=== PATIENT | male | born 1975 | race African-American/Black ===

== ENCOUNTER 2016-05-12 16:34 | Emergency (ER) | payer OTHER ==
[2016-05-12] MEDS ORDERED: Bicillin LA 1.2 MILLION UNITS/2 ML SYRINGE ONE (17:01)
== END 2016-05-12 17:20 | disposition home or self-care (01) ==
LOC: MADERS 16:34
DX: J03.90 Acute tonsillitis, unspecified (principal); E78.5 Hyperlipidemia, unspecified; I10 Essential (primary) hypertension; R59.0 Localized enlarged lymph nodes
CPT/HCPCS: 96372; J0561; J1040

== ENCOUNTER 2016-07-17 12:13 | Outpatient (CLI) | payer OTHER | END 2016-07-17 12:14 | LOC: MADLABBHPM 12:13 | PROVIDERS: ATTEND Family Medicine | DX: J03.90 Acute tonsillitis, unspecified (principal) | CPT/HCPCS: 36415; 87070 ==

== ENCOUNTER 2016-08-15 07:14 | Outpatient (CLI) | payer OTHER ==
[2016-08-15 07:56] LABS: Hemoglobin A1c 5.8 % (4.0-6.0)
[2016-08-15 08:04] LABS: ALT (SGPT) 39 U/L (8-55); AST (SGOT) 26 U/L (5-34); Albumin 3.4 g/dL (3.5-5.0); Alkaline Phosphatase 85 U/L (40-150); Anion Gap 12 mmol/L (10-20); BUN (Urea Nitrogen) 16 mg/dL (8.9-20.6); Bilirubin, Total 0.3 mg/dL (0.2-1.2); Calc. Creatinine Clearance 0 mL/min (70-130); Calcium 8.5 mg/dL (7.8-10.44); Carbon Dioxide 28 mmol/L (22-29); Cardiac Risk 5.6 (Less than 4.5); Chloride 105 mmol/L (98-107); Cholesterol 156 mg/dl (< 200 Desired); Estimated GFR-MDRD Greater than 90; Globulin 3.3 g/dL (2.4-3.5); Glucose 105 mg/dL (70-105); HDL Cholesterol 28 mg/dL (>60 Neg Risk); LDL Cholesterol, Calculated 107 mg/dL; Potassium 3.9 mmol/L (3.5-5.1); Protein, Total 6.7 g/dL (6.0-8.3); Sodium 141 mmol/L (136-145); Triglycerides 105 mg/dL (Less than 150)
[2016-08-15 08:17] LABS: Free T4 (Free Thyroxine) 0.76 ng/dL (0.70-1.48); Thyroid Stimulating Hormone 1.09 uIU/mL (0.35-4.94)
== END 2016-08-15 07:15 | disposition home or self-care (01) ==
LOC: MADLABBHPM 07:14
PROVIDERS: ATTEND Family Medicine
DX: E78.5 Hyperlipidemia, unspecified (principal); R73.09 Other abnormal glucose; I10 Essential (primary) hypertension
CPT/HCPCS: 36415; 80053; 80061; 83036; 84439; 84443

== ENCOUNTER 2017-01-18 23:18 | Emergency (ER) | payer OTHER ==
[2017-01-18] MEDS ORDERED: Acetaminophen/Codeine 30-300mg Tablet ONE (23:46)
[2017-01-19] MEDS ORDERED: Cephalexin 500 MG CAP ONE (00:11)
[2017-01-19] MEDS ORDERED: predniSONE 20 MG TAB ONE (00:11)
--- NOTE | 2017-01-19 08:31 | RAD ---
RIGHT ANKLE 3 VIEWS: HISTORY: Pain. COMPARISON: None. FINDINGS: Evidence of old injury to the medial ligamentous complex. Mild degenerative change at the lateral s houlder of the ankle mortise. There is ossification along the syndesmotic membrane. Small dorsal calcaneal enthesophytes. Mild soft tissue edema. IMPRESSION: Evidence of old ligamentous injury. No acute fracture or malalignment. POS: [facility]
== END 2017-01-19 00:35 | disposition home or self-care (01) ==
LOC: MADERS 23:18
DX: M25.571 Pain in right ankle and joints of right foot (principal); E78.5 Hyperlipidemia, unspecified; I10 Essential (primary) hypertension; Z79.899 Other long term (current) drug therapy
CPT/HCPCS: J7506

== ENCOUNTER 2017-09-01 11:10 | Emergency (ER) | payer OTHER ==
[2017-09-01] MEDS ORDERED: cloNIDine 0.1 MG TAB ONE (11:40)
[2017-09-01] MEDS ORDERED: Tobramycin Sulfate 0.3% Ophth Susp 5 ml Bottle ONE (11:44)
== END 2017-09-01 11:58 | disposition home or self-care (01) ==
LOC: MADERS 11:10
DX: H10.9 Unspecified conjunctivitis (principal); I10 Essential (primary) hypertension; E78.5 Hyperlipidemia, unspecified; M10.9 Gout, unspecified; Z79.899 Other long term (current) drug therapy
CPT/HCPCS: 99282

== ENCOUNTER 2017-10-06 07:27 | Outpatient (CLI) | payer OTHER ==
[2017-10-06 07:59] LABS: ALT (SGPT) 31 U/L (8-55); AST (SGOT) 21 U/L (5-34); Albumin 3.5 g/dL (3.5-5.0); Alkaline Phosphatase 88 U/L (40-150); Anion Gap 14 mmol/L (10-20); BUN (Urea Nitrogen) 11 mg/dL (8.9-20.6); Bilirubin, Total 0.3 mg/dL (0.2-1.2); Calc. Creatinine Clearance 0 mL/min (70-130); Calcium 8.8 mg/dL (7.8-10.44); Carbon Dioxide 25 mmol/L (22-29); Cardiac Risk 6.4 (Less than 4.5); Chloride 105 mmol/L (98-107); Cholesterol 140 mg/dl (< 200 Desired); Estimated GFR-MDRD Greater than 90; Globulin 3.4 g/dL (2.4-3.5); Glucose 115 mg/dL (70-105); HDL Cholesterol 22 mg/dL (>60 Neg Risk); LDL Cholesterol, Calculated 106 mg/dL; Potassium 4.3 mmol/L (3.5-5.1); Protein, Total 6.9 g/dL (6.0-8.3); Sodium 140 mmol/L (136-145); Triglycerides 62 mg/dL (Less than 150); Uric Acid 6.9 mg/dL (3.5-7.2)
[2017-10-06 11:47] LABS: Hemoglobin A1c 6.1 % (4.0-6.0)
== END 2017-10-06 07:28 | disposition home or self-care (01) ==
LOC: MADLABBHPM 07:27
PROVIDERS: ATTEND Family Medicine
DX: E78.5 Hyperlipidemia, unspecified (principal); R73.09 Other abnormal glucose
CPT/HCPCS: 36415; 80053; 80061; 83036; 84550

== ENCOUNTER 2018-03-03 07:09 | Outpatient (CLI) | payer OTHER ==
[2018-03-03 07:24] LABS: #Basophils 0.1 thou/uL (0.0-0.2); #Eosinphils 0.3 thou/uL (0.0-0.7); #Lymphocytes 2.6 thou/uL (1.20-3.40); #Monocytes 0.7 thou/uL (0.11-0.59); %Basophils 0.7 % (0.0-1.0); %Eosinophils 4.2 % (0.0-10.0); %Lymphocytes 33.4 % (21.0-51.0); %Monocytes 9.6 % (0.0-10.0); %Neutrophils 52.2 % (42.0-75.0); Hemoglobin 13.5 g/dL (14.0-18.0); Mean Corpuscular HGB CONC 31.2 g/dL (32.0-36.0); Mean Corpuscular Hemoglobin 27.2 pg (27.0-31.0); Mean Corpuscular Volume 87.2 fL (78.0-98.0); Mean Platelet Volume 6.4 fL (7.4-10.4); Platelet Count 372 thou/uL (130-400); RBC Distribution Width 14.1 % (11.5-14.5); Red Blood Cell (RBC) Count 4.97 mill/uL (4.70-6.10); White Blood Cell (WBC) Count 7.7 thou/uL (4.8-10.8)
[2018-03-03 07:30] LABS: ALT (SGPT) 37 U/L (8-55); AST (SGOT) 25 U/L (5-34); Albumin 3.6 g/dL (3.5-5.0); Alkaline Phosphatase 96 U/L (40-150); Anion Gap 12 mmol/L (10-20); BUN (Urea Nitrogen) 14 mg/dL (8.9-20.6); Bilirubin, Total 0.3 mg/dL (0.2-1.2); Calc. Creatinine Clearance 0 mL/min (70-130); Carbon Dioxide 27 mmol/L (22-29); Cardiac Risk 7.2 (Less than 4.5); Chloride 105 mmol/L (98-107); Cholesterol 151 mg/dl (< 200 Desired); Estimated GFR-MDRD Greater than 90; Globulin 3.7 g/dL (2.4-3.5); Glucose 121 mg/dL (70-105); HDL Cholesterol 21 mg/dL (>60 Neg Risk); LDL Cholesterol, Calculated 114 mg/dL; Potassium 4.2 mmol/L (3.5-5.1); Protein, Total 7.3 g/dL (6.0-8.3); Sodium 140 mmol/L (136-145); Triglycerides 78 mg/dL (Less than 150)
[2018-03-03 11:56] LABS: Hemoglobin A1c 6.1 % (4.0-6.0)
== END 2018-03-03 07:10 | disposition home or self-care (01) ==
LOC: MADLABBHPM 07:09
PROVIDERS: ATTEND Family Medicine
DX: E78.5 Hyperlipidemia, unspecified (principal); R73.09 Other abnormal glucose; D64.9 Anemia, unspecified; I10 Essential (primary) hypertension
CPT/HCPCS: 36415; 80053; 80061; 83036; 85025

== ENCOUNTER 2019-11-10 06:44 | Outpatient (CLI) | payer OTHER ==
[2019-11-10 07:42] LABS: Hemoglobin 14.3 g/dL (14.0-18.0); Mean Corpuscular HGB CONC 30.5 g/dL (32.0-36.0); Mean Corpuscular Hemoglobin 26.8 pg (27.0-31.0); Mean Corpuscular Volume 87.7 fL (78.0-98.0); Red Blood Cell (RBC) Count 5.32 mill/uL (4.70-6.10); White Blood Cell (WBC) Count 8.6 thou/uL (4.8-10.8)
[2019-11-10 07:43] LABS: #Basophils 0.1 thou/uL (0.0-0.2); #Eosinphils 0.5 thou/uL (0.0-0.7); #Lymphocytes 2.8 thou/uL (1.20-3.40); #Monocytes 0.7 thou/uL (0.11-0.59); #Neutrophils 4.5 thou/uL (1.40-6.50); %Basophils 1.1 % (0.0-1.0); %Eosinophils 5.6 % (0.0-10.0); %Monocytes 7.6 % (0.0-10.0); %Neutrophils 52.4 % (42.0-75.0); Mean Platelet Volume 6.2 fL (7.4-10.4); Platelet Count 412 thou/uL (130-400); RBC Distribution Width 14.2 % (11.5-14.5)
[2019-11-10 08:00] LABS: Carbon Dioxide 27 mmol/L (22-29); Chloride 105 mmol/L (98-107); Potassium 4.3 mmol/L (3.5-5.1); Sodium 142 mmol/L (136-145)
[2019-11-10 08:01] LABS: Albumin 3.6 g/dL (3.5-5.0); BUN (Urea Nitrogen) 13 mg/dL (8.9-20.6); Bilirubin, Total 0.3 mg/dL (0.2-1.2); Calc. Creatinine Clearance 0 mL/min (70-130); Calcium 8.6 mg/dL (7.8-10.44); Estimated GFR-MDRD Greater than 90; Globulin 3.8 g/dL (2.4-3.5); Glucose 99 mg/dL (70-105); Protein, Total 7.4 g/dL (6.0-8.3)
[2019-11-10 08:10] LABS: ALT (SGPT) 27 U/L (8-55); AST (SGOT) 21 U/L (5-34); Alkaline Phosphatase 97 U/L (40-110); Cholesterol 132 mg/dL (< 200 Desired); HDL Cholesterol 24 mg/dL (>60 Neg Risk); Triglycerides 64 mg/dL (Less than 150); Uric Acid 5.2 mg/dL (3.5-7.2)
[2019-11-10 08:14] LABS: Cardiac Risk 5.5 (Less than 4.5); LDL Cholesterol, Calculated 95 mg/dL
[2019-11-10 08:23] LABS: Anion Gap 14 mmol/L (10-20)
[2019-11-10 11:34] LABS: Hemoglobin A1c 6.1 % (4.0-6.0)
[2019-11-10 11:54] LABS: Iron 62 ug/dL (65-175)
== END 2019-11-10 06:45 | disposition home or self-care (01) ==
LOC: MADLAB 06:44
PROVIDERS: ATTEND Family Medicine
DX: D50.9 Iron deficiency anemia, unspecified (principal); R73.09 Other abnormal glucose; E79.0 Hyperuricemia without signs of inflammatory arthritis and tophaceous disease; I10 Essential (primary) hypertension
CPT/HCPCS: 36415; 80053; 80061; 83036; 83540; 84550; 85025

== ENCOUNTER 2019-12-12 16:02 | Emergency (ER) | payer OTHER | END 2019-12-12 17:00 | disposition home or self-care (01) | LOC: MADERS 16:02 | DX: S76.311A Strain of muscle, fascia and tendon of the posterior muscle group at thigh level, right thigh, initial encounter (principal); E78.5 Hyperlipidemia, unspecified; E78.00 Pure hypercholesterolemia, unspecified; I10 Essential (primary) hypertension; M10.9 Gout, unspecified; Z79.899 Other long term (current) drug therapy; X50.1XXA Overexertion from prolonged static or awkward postures, initial encounter | CPT/HCPCS: 99283 ==

== ENCOUNTER 2020-12-07 06:57 | Outpatient (CLI) | payer OTHER ==
[2020-12-07 07:24] LABS: #Basophils 0.1 thou/uL (0.0-0.2); #Eosinphils 0.3 thou/uL (0.0-0.7); #Lymphocytes 2.7 thou/uL (1.20-3.40); #Monocytes 0.7 thou/uL (0.11-0.59); #Neutrophils 4.4 thou/uL (1.40-6.50); %Basophils 1.1 % (0.0-1.0); %Eosinophils 4.1 % (0.0-10.0); %Lymphocytes 32.7 % (21.0-51.0); %Monocytes 8.8 % (0.0-10.0); %Neutrophils 53.4 % (42.0-75.0); Hemoglobin 15.3 g/dL (14.0-18.0); Mean Corpuscular HGB CONC 30.6 g/dL (32.0-36.0); Mean Corpuscular Hemoglobin 27.1 pg (27.0-31.0); Mean Corpuscular Volume 88.5 fL (78.0-98.0); Mean Platelet Volume 6.5 fL (7.4-10.4); Platelet Count 380 thou/uL (130-400); RBC Distribution Width 14.4 % (11.5-14.5); Red Blood Cell (RBC) Count 5.66 mill/uL (4.70-6.10); White Blood Cell (WBC) Count 8.3 thou/uL (4.8-10.8)
[2020-12-07 07:38] LABS: ALT (SGPT) 28 U/L (8-55); AST (SGOT) 24 U/L (5-34); Albumin 3.6 g/dL (3.5-5.0); Alkaline Phosphatase 79 U/L (40-110); Anion Gap 12 mmol/L (10-20); BUN (Urea Nitrogen) 17 mg/dL (8.9-20.6); Bilirubin, Total 0.2 mg/dL (0.2-1.2); Calc. Creatinine Clearance 0 mL/min (70-130); Calcium 9.6 mg/dL (7.8-10.44); Carbon Dioxide 27 mmol/L (22-29); Cardiac Risk 5.6 (Less than 4.5); Chloride 104 mmol/L (98-107); Cholesterol 141 mg/dl (< 200 Desired); Globulin 4.2 g/dL (2.4-3.5); Glucose 103 mg/dL (70-105); HDL Cholesterol 25 mg/dL (>60 Neg Risk); LDL Cholesterol, Calculated 99 mg/dL; Potassium 3.9 mmol/L (3.5-5.1); Protein, Total 7.8 g/dL (6.0-8.3); Sodium 139 mmol/L (136-145); Triglycerides 85 mg/dL (Less than 150)
[2020-12-07 07:58] LABS: Thyroid Stimulating Hormone 0.7896 uIU/mL (0.35-4.94)
[2020-12-07 11:42] LABS: Hemoglobin A1c 6.4 % (4.0-6.0)
[2020-12-07 12:06] LABS: Creatinine, Urine 121.04 mg/dL (63-166); Microalbumin Urine 2.7 mg/dL (0.5-50.0); Microalbumin/Creat Ratio 22.3 mg/g (Less than 30)
[2020-12-07 12:31] LABS: Ferritin 273.26 ng/mL (22-322); Free T4 (Free Thyroxine) 0.89 ng/dL (0.70-1.48)
== END 2020-12-07 06:58 | disposition home or self-care (01) ==
LOC: MADLABBHPM 06:57
PROVIDERS: ATTEND Family Medicine
DX: E78.5 Hyperlipidemia, unspecified (principal); I10 Essential (primary) hypertension; D50.9 Iron deficiency anemia, unspecified; R73.09 Other abnormal glucose
CPT/HCPCS: 36415; 80053; 80061; 82043; 82728; 83036; 84439; 84443; 85025

== ENCOUNTER 2020-12-19 06:51 | Outpatient (CLI) | payer OTHER ==
[2020-12-19 20:18] LABS: SARS-CoV-2 IgG Ab Non-Reactive (NonReactive)
[2020-12-19 20:31] LABS: SARS-CoV-2 IgG Index 0.19 S/CO (< 1.40)
== END 2020-12-19 06:52 | disposition home or self-care (01) ==
LOC: MADLAB 06:51
PROVIDERS: ATTEND Family Medicine
DX: Z01.84 Encounter for antibody response examination (principal); Z20.822 Contact with and (suspected) exposure to COVID-19
CPT/HCPCS: 36415; 86769

== ENCOUNTER 2021-03-29 19:53 | Emergency (ER) | payer OTHER, SELFPAY ==
[2021-03-29] MEDS ORDERED: Acetaminophen 500 MG TAB ONE (20:45)
[2021-03-30 16:57] LABS: SARS-CoV-2 PCR by NAA DETECTED (NotDetected)
== END 2021-03-29 22:21 | disposition home or self-care (01) ==
LOC: MADERS 19:53
DX: U07.1 COVID-19 (principal); I10 Essential (primary) hypertension; E78.5 Hyperlipidemia, unspecified; E78.00 Pure hypercholesterolemia, unspecified; M19.90 Unspecified osteoarthritis, unspecified site; Z79.899 Other long term (current) drug therapy
CPT/HCPCS: 71046; 87081; 87430; 87804; 99283; U0003; U0005

== ENCOUNTER 2021-12-21 06:36 | Outpatient (CLI) | payer BC ==
[2021-12-21 06:57] LABS: ALT (SGPT) 29 U/L (8-55); AST (SGOT) 20 U/L (5-34); Albumin 3.6 g/dL (3.5-5.0); Alkaline Phosphatase 84 U/L (40-110); Anion Gap 13 mmol/L (10-20); BUN (Urea Nitrogen) 16 mg/dL (8.9-20.6); Bilirubin, Total 0.3 mg/dL (0.2-1.2); Calc. Creatinine Clearance 0 mL/min (70-130); Calcium 8.8 mg/dL (7.8-10.44); Carbon Dioxide 27 mmol/L (22-29); Cardiac Risk 5.9 (Less than 4.5); Chloride 106 mmol/L (98-107); Cholesterol 142 mg/dl (< 200 Desired); Estimated GFR 106; Globulin 3.5 g/dL (2.4-3.5); Glucose 132 mg/dL (70-105); HDL Cholesterol 24 mg/dL (>60 Neg Risk); LDL Cholesterol, Calculated 106 mg/dL; Potassium 4.1 mmol/L (3.5-5.1); Protein, Total 7.1 g/dL (6.0-8.3); Sodium 142 mmol/L (136-145); Triglycerides 60 mg/dL (Less than 150); Uric Acid 6.1 mg/dL (3.5-7.2)
[2021-12-21 11:18] LABS: Hemoglobin A1c 6.1 % (4.0-6.0)
== END 2021-12-21 06:37 | disposition home or self-care (01) ==
LOC: MADLABBHPM 06:36
PROVIDERS: ATTEND Family Medicine
DX: E78.5 Hyperlipidemia, unspecified (principal); I10 Essential (primary) hypertension; E79.0 Hyperuricemia without signs of inflammatory arthritis and tophaceous disease; R73.09 Other abnormal glucose
CPT/HCPCS: 36415; 80053; 80061; 83036; 84550

== ENCOUNTER 2022-03-13 05:20 | Emergency (ER) | payer BC ==
[2022-03-13] MEDS ORDERED: Sodium Chloride 0.9% 1,000 ML ONE (06:01)
[2022-03-13] MEDS ORDERED: predniSONE 20 MG TAB ONE (06:19)
[2022-03-13] MEDS ORDERED: Ketorolac Tromethamine 30 MG/ML VIAL ONE (06:19)
== END 2022-03-13 07:34 | disposition home or self-care (01) ==
LOC: MADERS 05:20
DX: J10.1 Influenza due to other identified influenza virus with other respiratory manifestations (principal); I10 Essential (primary) hypertension; E78.00 Pure hypercholesterolemia, unspecified; Z79.899 Other long term (current) drug therapy
CPT/HCPCS: 87804; 93005; 96374; J1885; J7050; J7512; J7620

== ENCOUNTER 2022-06-18 06:46 | Outpatient (CLI) | payer BC ==
[2022-06-18 07:23] LABS: #Basophils 0.1 thou/uL (0.0-0.2); #Eosinphils 0.2 thou/uL (0.0-0.7); #Lymphocytes 2.4 thou/uL (1.20-3.40); #Monocytes 0.6 thou/uL (0.11-0.59); %Eosinophils 2.7 % (0.0-10.0); %Lymphocytes 28.5 % (21.0-51.0); %Monocytes 7.6 % (0.0-10.0); %Neutrophils 60.1 % (42.0-75.0); Hemoglobin 15.8 g/dL (14.0-18.0); Mean Corpuscular HGB CONC 33.3 g/dL (32.0-36.0); Mean Corpuscular Hemoglobin 27.4 pg (27.0-31.0); Mean Corpuscular Volume 82.3 fl (78.0-98.0); Mean Platelet Volume 5.9 fL (7.4-10.4); Platelet Count 408 10x3/uL (130-400); RBC Distribution Width 13.6 % (11.5-14.5); Red Blood Cell (RBC) Count 5.75 mill/uL (4.70-6.10); White Blood Cell (WBC) Count 8.3 10x3/uL (4.8-10.8)
[2022-06-18 07:41] LABS: ALT (SGPT) 32 U/L (8-55); AST (SGOT) 21 U/L (5-34); Albumin 3.9 g/dL (3.5-5.0); Alkaline Phosphatase 92 U/L (40-110); Anion Gap 13 mmol/L (10-20); BUN (Urea Nitrogen) 15 mg/dL (8.9-20.6); Bilirubin, Total 0.3 mg/dL (0.2-1.2); Calc. Creatinine Clearance 0 mL/min (70-130); Calcium 9.5 mg/dL (7.8-10.44); Carbon Dioxide 29 mmol/L (22-29); Chloride 104 mmol/L (98-107); Cholesterol 140 mg/dl (< 200 Desired); Estimated GFR 104; Globulin 4.4 g/dL (2.4-3.5); Glucose 133 mg/dL (70-105); HDL Cholesterol 28 mg/dL (>60 Neg Risk); LDL Cholesterol, Calculated 96 mg/dL; Potassium 4.2 mmol/L (3.5-5.1); Protein, Total 8.3 g/dL (6.0-8.3); Sodium 142 mmol/L (136-145); Triglycerides 81 mg/dL (Less than 150); Uric Acid 5.3 mg/dL (3.5-7.2)
[2022-06-18 11:09] LABS: Hemoglobin A1c 6.4 % (4.0-6.0)
== END 2022-06-18 06:47 | disposition home or self-care (01) ==
LOC: MADLABBHPM 06:46
PROVIDERS: ATTEND Family Medicine
DX: I10 Essential (primary) hypertension (principal); E78.5 Hyperlipidemia, unspecified; D64.9 Anemia, unspecified; E79.0 Hyperuricemia without signs of inflammatory arthritis and tophaceous disease; R73.09 Other abnormal glucose
CPT/HCPCS: 36415; 80053; 80061; 82728; 83036; 84550; 85025

== ENCOUNTER 2023-03-10 06:35 | Outpatient (CLI) | payer BC ==
[2023-03-10 06:56] LABS: ALT (SGPT) 33 U/L (8-55); AST (SGOT) 23 U/L (5-34); Albumin 3.6 g/dL (3.5-5.0); Alkaline Phosphatase 91 U/L (40-110); Anion Gap 13 mmol/L (10-20); BUN (Urea Nitrogen) 16 mg/dL (8.9-20.6); Bilirubin, Total 0.2 mg/dL (0.2-1.2); Calc. Creatinine Clearance 0 mL/min (70-130); Calcium 8.6 mg/dL (7.8-10.44); Carbon Dioxide 27 mmol/L (22-29); Cardiac Risk 5.4 (Less than 4.5); Chloride 104 mmol/L (98-107); Cholesterol 150 mg/dl (< 200 Desired); Estimated GFR 108; Globulin 3.7 g/dL (2.4-3.5); Glucose 138 mg/dL (70-105); HDL Cholesterol 28 mg/dL (>60 Neg Risk); LDL Cholesterol, Calculated 103 mg/dL; Potassium 4.1 mmol/L (3.5-5.1); Protein, Total 7.3 g/dL (6.0-8.3); Sodium 140 mmol/L (136-145); Triglycerides 94 mg/dL (Less than 150); Uric Acid 6.5 mg/dL (3.5-7.2)
[2023-03-10 07:58] LABS: #Basophils 0.1 thou/uL (0.0-0.2); #Eosinphils 0.3 thou/uL (0.0-0.7); #Lymphocytes 2.4 thou/uL (1.20-3.40); #Monocytes 0.8 thou/uL (0.11-0.59); #Neutrophils 4.6 thou/uL (1.40-6.50); %Basophils 1.1 % (0.0-1.0); %Eosinophils 3.7 % (0.0-10.0); %Lymphocytes 29.4 % (21.0-51.0); %Monocytes 9.4 % (0.0-10.0); %Neutrophils 56.5 % (42.0-75.0); Hematocrit 50.9 % (42.0-52.0); Hemoglobin 15.2 g/dL (14.0-18.0); Mean Corpuscular HGB CONC 29.8 g/dL (32.0-36.0); Mean Corpuscular Hemoglobin 27.1 pg (27.0-31.0); Mean Corpuscular Volume 90.8 fl (78.0-98.0); Platelet Count 349 10x3/uL (130-400); RBC Distribution Width 15.9 % (11.5-14.5); Red Blood Cell (RBC) Count 5.61 mill/uL (4.70-6.10); White Blood Cell (WBC) Count 8.1 10x3/uL (4.8-10.8)
[2023-03-10 08:16] LABS: Anisocytosis SLIGHT = 6-15 cells (100X) (0-5/hpf); Platelet Adequacy Comment Appears Adequate
== END 2023-03-10 06:36 ==
LOC: MADLABBHPM 06:35
PROVIDERS: ATTEND Family Medicine
DX: I10 Essential (primary) hypertension (principal); D64.9 Anemia, unspecified; E79.0 Hyperuricemia without signs of inflammatory arthritis and tophaceous disease; E78.5 Hyperlipidemia, unspecified
CPT/HCPCS: 36415; 80053; 80061; 84550; 85025

== ENCOUNTER 2025-03-03 06:56 | Outpatient (CLI) | payer BC ==
[2025-03-03 07:37] LABS: #Basophils 0.1 thou/uL (0.0-0.2); #Eosinophils 0.2 thou/uL (0.0-0.7); #Lymphocytes 2.7 thou/uL (1.20-3.40); #Monocytes 0.8 thou/uL (0.11-0.59); #Neutrophils 3.9 thou/uL (1.40-6.50); %Basophils 0.8 % (0.0-1.0); %Eosinophils 2.1 % (0.0-10.0); %Lymphocytes 35.1 % (21.0-51.0); %Monocytes 10.6 % (0.0-10.0); %Neutrophils 51.4 % (42.0-75.0); Hematocrit 50.9 % (42.0-52.0); Hemoglobin 15.4 g/dL (14.0-18.0); Mean Corpuscular Hemoglobin 27.2 pg (27.0-31.0); Mean Corpuscular Volume 89.6 fl (78.0-98.0); Platelet Count 394 10x3/uL (130-400); Red Blood Cell (RBC) Count 5.67 mill/uL (4.70-6.10); White Blood Cell (WBC) Count 7.6 10x3/uL (4.8-10.8)
[2025-03-03 07:51] LABS: ALT (SGPT) 26 U/L (Less than 45); AST (SGOT) 26 U/L (11-34); Albumin 3.7 g/dL (3.1-4.5); Alkaline Phosphatase 84 U/L (40-110); Anion Gap 13 mmol/L (10-20); BUN (Urea Nitrogen) 15 mg/dL (8.9-20.6); Bilirubin, Total 0.5 mg/dL (0.3-1.2); Calc. Creatinine Clearance 0 mL/min (70-130); Calcium 9.0 mg/dL (7.8-10.44); Carbon Dioxide 28 mmol/L (22-29); Cardiac Risk 4.6 (Less than 4.5); Chloride 103 mmol/L (98-107); Cholesterol 119 mg/dl (< 200 Desired); Globulin 4.2 g/dL (2.4-3.5); Glucose 104 mg/dL (70-105); HDL Cholesterol 26 mg/dL (>60 Neg Risk); LDL Cholesterol, Calculated 82 mg/dL; Potassium 3.8 mmol/L (3.5-5.1); Sodium 140 mmol/L (136-145); Triglycerides 57 mg/dL (Less than 150); Uric Acid 4.6 mg/dL (3.7-7.7)
== END 2025-03-03 06:57 | disposition home or self-care (01) ==
LOC: MADLAB 06:56
PROVIDERS: ATTEND Family Medicine
DX: Z00.00 Encounter for general adult medical examination without abnormal findings (principal); I10 Essential (primary) hypertension; E78.5 Hyperlipidemia, unspecified; M10.9 Gout, unspecified; E11.9 Type 2 diabetes mellitus without complications
CPT/HCPCS: 36415; 80053; 80061; 82043; 83036; 84550; 85025